=== PATIENT | female | born 1970 ===

== ENCOUNTER 2018-02-22 23:17 | Emergency (ER) | payer OTHER ==
[~2018-02-22] VITALS: Ht 165.1 cm; Wt 64.9 kg
[2018-02-23] MEDS ORDERED: BENADRYL25 MG PO (00:40)
[2018-02-23] MEDS ORDERED: MEDROL8 MG PO (00:40)
[2018-02-23] MEDS ORDERED: MUPIROCIN22 GM TOP (00:40)
== END 2018-02-23 02:15 | disposition home or self-care (01) ==
LOC: ER 23:17
DX: L29.8 Other pruritus (principal); T63.444A Toxic effect of venom of bees, undetermined, initial encounter; Y92.89 Other specified places as the place of occurrence of the external cause